=== PATIENT | female | born 1960 | race Caucasian/White ===

== ENCOUNTER → 2016-07-27 | Outpatient (CLI) | payer OTHER | END | disposition home or self-care (01) | LOC: LABWHC1 10:25 | PROVIDERS: ATTEND Internal Medicine Endocrinology, Diabetes & Metabolism | DX: E89.0 Postprocedural hypothyroidism (principal) | CPT/HCPCS: 36415; 84443 ==

== ENCOUNTER → 2017-04-24 | Outpatient (CLI) | payer OTHER | END | disposition home or self-care (01) | LOC: LABWHC1 12:20 | PROVIDERS: ATTEND Internal Medicine Endocrinology, Diabetes & Metabolism | DX: E03.8 Other specified hypothyroidism (principal) | CPT/HCPCS: 36415; 84443 ==

== ENCOUNTER 2017-11-19 07:59 | Emergency (ER) | payer OTHER ==
[2017-11-19] MEDS ORDERED: MECLIZINE 12.5 MG TAB PO STA (08:04)
[2017-11-19] MEDS ORDERED: SODIUM CHLORIDE 0.9% 1,000 ML IV STA (08:04)
[2017-11-19] MEDS ORDERED: METOCLOPRAMIDE 5 MG/ML 2 ML VIAL IVP STA (08:08)
[2017-11-19 08:15] LABS: Glucose,Whole Blood 140 mg/dL (75-99)
[2017-11-19 08:27] LABS: Basophils % (A) 0 %; Eosinophils # (A) 0.6 k/uL (0-0.7); Eosinophils % (A) 7 %; HCT 38.4 % (34.0-46.0); HGB 12.7 gm/dL (11.4-16.0); Lymphocytes % (A) 38 %; MCH 30.4 pg (25.0-35.0); MCHC 33.2 g/dL (31.0-37.0); MCV 91.5 fL (80.0-100.0); Mean Platelet Volume 8.1; Monocytes # (A) 0.4 k/uL (0-1.0); Monocytes % (A) 5 %; Neutrophils # (A) 3.7 k/uL (1.3-7.7); Neutrophils % (A) 47 %; Platelet Count 414 k/uL (150-450); WBC 7.8 k/uL (3.8-10.6)
--- NOTE | 2017-11-19 08:40 | ED ---
Dizziness HPI - General Chief Complaint: Dizziness Stated Complaint: dizziness, vomiting Time Seen by Provider: 11/19/17 08:03 Source: patient, EMS, RN notes reviewed Mode of arrival: EMS Limitations: no limitations - History of Present Illness Initial Comments: This a 57-year-old female presents emergency department via EMS chief complaint of dizziness. 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 Patient states that she went to the bathroom started feeling lightheaded chemo the bathroom was much more dizzy. She states the room was spinning. Patient states that she is much better she lays still close her eyes. She does have current sinus congestion and has been told by ENT in the past that she has slight Mnire's disease. Patient denies any recent fever , headache, sore throat, cough or chest congestion. Patient denies any chest pain, shortness of breath, vomiting but states she is nauseated time. She does take medications for hyperlipidemia, diabetes, hypertension - Related Data Home Medications Medication Instructions Recorded Confirmed Aspirin EC [Ecotrin] 81 mg PO DAILY 10/29/14 10/29/14 Benazepril HCl [Lotensin] 40 mg PO DAILY 10/29/14 10/29/14 Citalopram Hydrobromide [CeleXA] 20 mg PO DAILY 10/29/14 10/29/14 Loratadine [Claritin] 10 mg PO DAILY 10/29/14 10/29/14 Pravastatin Sodium [Pravachol] 20 mg PO DAILY 10/29/14 10/29/14 metFORMIN HCL [Glucophage] 1,000 mg PO BID 10/29/14 10/29/14 Levothyroxine Sodium [Synthroid] 112 mcg PO [id number] 11/19/17 11/19/17 Previous Rx's Medication Instructions Recorded Meclizine [Antivert] 25 mg PO TID PRN #15 tab 11/19/17 Allergies Allergy/AdvReac Type Severity Reaction Status Date / Time No Known Allergies Allergy Verified 11/19/17 10:42 Review of Systems ROS Statement: Those systems with pertinent positive or pertinent negative responses have been documented in the HPI. ROS Other: All systems not noted in ROS Statement are negative. Past Medical History Past Medical History: Cancer, Diabetes Mellitus, Hyperlipidemia, Hypertension, Thyroid Disorder History of Any Multi-Drug Resistant Organisms: None Reported Past Surgical History: Hysterectomy Additional Past Surgical History / Comment(s): total thyroidectomy Past Psychological History: No Psychological Hx Reported Smoking Status: Never smoker Past Alcohol Use History: None Reported Past Drug Use History: None Reported General Exam Limitations: no limitations General appearance: alert, in no apparent distress Head exam: Present: atraumatic, normocephalic, normal inspection Eye exam: Present: normal appearance, PERRL, EOMI. Absent: scleral icterus, conjunctival injection, periorbital swelling ENT exam: Present: normal exam, normal oropharynx, mucous membranes moist, TM's normal bilaterally, normal external ear exam Neck exam: Present: normal inspection, full ROM. Absent: tenderness, meningismus, lymphadenopathy Respiratory exam: Present: normal lung sounds bilaterally. Absent: respiratory distress, wheezes, rales, rhonchi, stridor Cardiovascular Exam: Present: regular rate, normal rhythm, normal heart sounds. Absent: systolic murmur, diastolic murmur, rubs, gallop, clicks GI/Abdominal exam: Present: soft, normal bowel sounds. Absent: distended, tenderness, guarding, rebound, rigid Neurological exam: Present: alert, oriented X3, CN II-XII intact, reflexes normal, other (Finger to nose intact bilaterally without or shooting). Absent: motor sensory deficit Skin exam: Present: warm, dry, intact, normal color. Absent: rash Course Vital Signs 11/19/17 08:04 Temperature 97.9 F Pulse Rate 71 Respiratory 20 Rate Blood Pressure 178/86 O2 Sat by Pulse 100 Oximetry EKG Findings - EKG Comments: EKG Findings:: EKG performed at 8:27 normal sinus rhythm with a rate of 65 MS 138 QRS 98 QT/QTc 442/459 Medical Decision Making - Medical Decision Making 57-year-old female presented emergency department for dizziness. Patient had lab work, EKG which is unremarkable. Patient symptoms were worse with movement. Symptoms have improved after Antivert and IV fluids. She states she has no dizziness at this time. Patient's symptoms are consistent with vertigo will follow-up tomorrow for recheck she'll be advised that she needs to follow for clearance to go back to work. - Lab Data Result diagrams: 11/19/17 08:15 11/19/17 08:15 Lab Results 04/30/18 04/30/18 04/30/18 Range/Units 08:13 08:15 08:15 WBC 7.8 (3.8-10.6) k/uL RBC 4.20 (3.80-5.40) m/uL Hgb 12.7 (11.4-16.0) gm/dL Hct 38.4 (34.0-46.0) % MCV 91.5 (80.0-100.0) fL MCH 30.4 (25.0-35.0) pg MCHC 33.2 (31.0-37.0) g/dL RDW 13.0 (11.5-15.5) % Plt Count 414 (150-450) k/uL Neutrophils % 47 % Lymphocytes % 38 % Monocytes % 5 % Eosinophils % 7 % Basophils % 0 % Neutrophils # 3.7 (1.3-7.7) k/uL Lymphocytes # 3.0 (1.0-4.8) k/uL Monocytes # 0.4 (0-1.0) k/uL Eosinophils # 0.6 (0-0.7) k/uL Basophils # 0.0 (0-0.2) k/uL Carbon Monoxide, Quant (<10.0) % Sodium 142 (137-145) mmol/L Potassium 4.0 (3.5-5.1) mmol/L Chloride 106 (98-107) mmol/L Carbon Dioxide 21 L (22-30) mmol/L Anion Gap 15 mmol/L BUN 11 (7-17) mg/dL Creatinine 0.57 (0.52-1.04) mg/dL Est GFR (CKD-EPI)AfAm >90 (>60 ml/min/1.73 sqM) Est GFR (CKD-EPI)NonAf >90 (>60 ml/min/1.73 sqM) Glucose 143 H (74-99) mg/dL POC Glucose (mg/dL) 140 H (75-99) mg/dL POC Glu Health Technician ID Kvng [place] Calcium 9.6 (8.4-10.2) mg/dL Magnesium 1.7 (1.6-2.3) mg/dL Total Bilirubin 0.5 (0.2-1.3) mg/dL AST 22 (14-36) U/L ALT 42 (9-52) U/L Alkaline Phosphatase 77 (38-126) U/L Troponin I (0.000-0.034) ng/mL Total Protein 6.6 (6.3-8.2) g/dL Albumin 4.1 (3.5-5.0) g/dL Urine Color Urine Appearance (Clear) Urine pH (5.0-8.0) Ur Specific [place] (1.001-1.035) Urine Protein (Negative) Urine Glucose (UA) (Negative) Urine Ketones (Negative) Urine Blood (Negative) Urine Nitrite (Negative) Urine Bilirubin (Negative) Urine Urobilinogen (<2.0) mg/dL Ur Leukocyte Esterase (Negative) Urine RBC (0-5) /hpf Urine WBC (0-5) /hpf Ur Squamous Epith Cells (0-4) /hpf Amorphous Sediment (None) /hpf Urine Bacteria (None) /hpf Urine Mucus (None) /hpf 11/19/17 11/19/17 11/19/17 Range/Units 08:15 08:15 09:45 WBC (3.8-10.6) k/uL RBC (3.80-5.40) m/uL Hgb (11.4-16.0) gm/dL Hct (34.0-46.0) % MCV (80.0-100.0) fL MCH (25.0-35.0) pg MCHC (31.0-37.0) g/dL RDW (11.5-15.5) % Plt Count (150-450) k/uL Neutrophils % % Lymphocytes % % Monocytes % % Eosinophils % % Basophils % % Neutrophils # (1.3-7.7) k/uL Lymphocytes # (1.0-4.8) k/uL Monocytes # (0-1.0) k/uL Eosinophils # (0-0.7) k/uL Basophils # (0-0.2) k/uL Carbon Monoxide, Quant 1.3 (<10.0) % Sodium (137-145) mmol/L Potassium (3.5-5.1) mmol/L Chloride (98-107) mmol/L Carbon Dioxide (22-30) mmol/L Anion Gap mmol/L BUN (7-17) mg/dL Creatinine (0.52-1.04) mg/dL Est GFR (CKD-EPI)AfAm (>60 ml/min/1.73 sqM) Est GFR (CKD-EPI)NonAf (>60 ml/min/1.73 sqM) Glucose (74-99) mg/dL POC Glucose (mg/dL) (75-99) mg/dL POC Glu Health Technician ID Calcium (8.4-10.2) mg/dL Magnesium (1.6-2.3) mg/dL Total Bilirubin (0.2-1.3) mg/dL AST (14-36) U/L ALT (9-52) U/L Alkaline Phosphatase (38-126) U/L Troponin I <0.012 (0.000-0.034) ng/mL Total Protein (6.3-8.2) g/dL Albumin (3.5-5.0) g/dL Urine Color Light Yellow Urine Appearance Cloudy H (Clear) Urine pH 6.5 (5.0-8.0) Ur Specific [place] 1.009 (1.001-1.035) Urine Protein 1+ H (Negative) Urine Glucose (UA) Negative (Negative) Urine Ketones Negative (Negative) Urine Blood Negative (Negative) Urine Nitrite Negative (Negative) Urine Bilirubin Negative (Negative) Urine Urobilinogen <2.0 (<2.0) mg/dL Ur Leukocyte Esterase Negative (Negative) Urine RBC 5 (0-5) /hpf Urine WBC 4 (0-5) /hpf Ur Squamous Epith Cells <1 (0-4) /hpf Amorphous Sediment Few H (None) /hpf Urine Bacteria Moderate H (None) /hpf Urine Mucus Rare H (None) /hpf Disposition Clinical Impression: Vertigo Disposition: HOME SELF-CARE Condition: Stable Instructions: Dizziness (ED) Additional Instructions: Please return to the Emergency Department if symptoms worsen or any other concerns. Prescriptions: Meclizine [Antivert] 25 mg PO TID PRN #15 tab PRN Reason: Vertigo Is patient prescribed a controlled substance at d/c from ED?: No Referrals: Nawaf Kwok DO [Primary Care Provider] - 1-2 days Time of Disposition: 10:44
[2017-11-19 08:41] LABS: ALT 42 U/L (9-52); AST 22 U/L (14-36); Albumin 4.1 g/dL (3.5-5.0); Alkaline Phosphatase 77 U/L (38-126); Anion Gap 15 mmol/L; Blood Urea Nitrogen 11 mg/dL (7-17); Calcium 9.6 mg/dL (8.4-10.2); Carbon Dioxide 21 mmol/L (22-30); Chloride 106 mmol/L (98-107); Glucose 143 mg/dL (74-99); Magnesium 1.7 mg/dL (1.6-2.3); Sodium 142 mmol/L (137-145); Total Bilirubin 0.5 mg/dL (0.2-1.3); Total Protein 6.6 g/dL (6.3-8.2)
[2017-11-19 10:00] LABS: Amorphous Sediment,Urine Few /hpf; Appearance,Urine Cloudy (Clear); Bacteria,Urine Moderate /hpf; Bilirubin,Urine Negative (Negative); Blood,Urine Negative (Negative); Color,Urine Light Yellow; Glucose,Urine (UA) Negative (Negative); Ketones,Urine Negative (Negative); Leukocyte Esterase,Urine Negative (Negative); Mucus,Urine Rare /hpf; Nitrite,Urine Negative (Negative); PH, Urine 6.5 (5.0-8.0); Protein,Urine 1+ (Negative); RBC,Urine 5 /hpf (0-5); Specific Gravity,Urine 1.009 (1.001-1.035); Squamous Epithelial Cell,Urine <1 /hpf (0-4); Urobilinogen,Urine <2.0 mg/dL (<2.0); WBC,Urine 4 /hpf (0-5)
[2017-11-19 11:10] VITALS: BP 176/75; PULSE 85; RESP 18; TEMP 97.6
== END 2017-11-19 11:11 | disposition home or self-care (01) ==
LOC: EC 07:59
DX: R42 Dizziness and giddiness (principal); E11.9 Type 2 diabetes mellitus without complications; E78.5 Hyperlipidemia, unspecified; I10 Essential (primary) hypertension; E07.9 Disorder of thyroid, unspecified; Z79.84 Long term (current) use of oral hypoglycemic drugs; Z79.82 Long term (current) use of aspirin; Z79.899 Other long term (current) drug therapy; Z85.9 Personal history of malignant neoplasm, unspecified
CPT/HCPCS: 99284; 96374; 96361 ×3; 36415; 93005; 80053; 82375; 83735; 84484; 85025; 81001; J2765

== ENCOUNTER → 2017-12-24 | Outpatient (CLI) | payer OTHER | END | disposition home or self-care (01) | LOC: LABWHC1 09:06 | PROVIDERS: ATTEND Internal Medicine Endocrinology, Diabetes & Metabolism | DX: E03.8 Other specified hypothyroidism (principal) | CPT/HCPCS: 36415; 84443 ==

== ENCOUNTER 2018-08-16 08:36 | Day surgery (SDC) | payer OTHER ==
[2018-08-14 13:49] VITALS: BMI 32.5
[~2018-08-16 08:36] MED LIST: DEXAMETHASONE SOD PHOSPHATE 10 MG/ML 1 ML VIAL IV ONE; DEXAMETHASONE SOD PHOSPHATE 4 MG/ML 1 ML VIAL IV ONE; FAMOTIDINE 20 MG/2 ML VIAL IV ONE; HYDROmorphone 0.5 MG/0.5 ML SYRINGE IVP PRN; LACTATED RINGERS 1,000 ML IV SCH; MIDAZOLAM (PF) 2 MG/2 ML VIAL IV PRN; ONDANSETRON 4 MG/2 ML VIAL IVP ONE; SCOPOLAMINE 1.5MG/72HR PATCH TRANSDERM ONE; ceFAZolin 1,000 MG in DEXTROSE/WATER 1 50ML.BAG IV ONE
[2018-08-16] MEDS: OXYMETAZOLINE 0.05% NASL SPRAY 1 SPRAY BOTTLE NASAL ONE ×5 (08:57→09:19)
[2018-08-16 09:27] LABS: Glucose,Whole Blood 101 mg/dL (75-99)
[2018-08-16] MEDS: LACTATED RINGERS 1,000 ML IV SCH ×2 (09:31→09:52)
[2018-08-16] MEDS ORDERED: ePHEDrine SULFATE/0.9% NACL/PF 50 MG/5 ML SYRINGE IV ONE (09:49)
[2018-08-16] MEDS ORDERED: LIDOCAINE 1% INJ 10MG/ML (20 ML MDV) ONE (09:49)
[2018-08-16] MEDS ORDERED: PROPOFOL 10 MG/ML 20 ML VIAL IV ONE (09:49)
[2018-08-16] MEDS ORDERED: MIDAZOLAM 2 MG/2 ML VIAL ONE (09:49)
[2018-08-16] MEDS ORDERED: SUCCINYLCHOLINE CHLORIDE 100 MG/5 ML SYR IV ONE (09:49)
[2018-08-16] MEDS ORDERED: fentaNYL (PF) 50 MCG/ML 2 ML AMP ONE (09:49)
[2018-08-16] MEDS ORDERED: DEXAMETHASONE SOD PHOS (MDV) 100 MG/10 ML VIAL ONE (09:49)
[2018-08-16] MEDS ORDERED: LIDOCAINE 1%-EPI 1:100,000 20 ML VIAL SQ ONE ×3 (09:50)
[2018-08-16] MEDS ORDERED: FLUORESCEIN STRIPS 1 MG STRIP MISCELLANE ONE (09:50)
[2018-08-16] MEDS ORDERED: BUPIVACAIN-EPI 0.5%-1:200,000 30 ML VIAL SQ ONE ×3 (09:50)
[2018-08-16] MEDS ORDERED: EPINEPHrine 1 MG/ML (MDV) 30 ML VIAL TOPICAL ONE (09:51)
[2018-08-16 11:04] VITALS: RESP 16; TEMP 97
--- NOTE | 2018-08-16 11:16 | P.OP ---
Date of Procedure: 08/16/18 Preoperative Diagnosis: Chronic Sinusitis with maxillary sinus polyps Deviated nasal septum Postoperative Diagnosis: Same Procedure(s) Performed: Bilateral functional endoscopic sinus surgery with maxillary antrostomy and polyp removal, total ethmoidectomies, sphenoid sinusotomies with removal of diseased tissue Septoplasty Anesthesia: WOODYA Surgeon: Deepak Rogers Estimated Blood Loss (ml): 5 Pathology: other (Sinonasal) Condition: stable Disposition: PACU Indications for Procedure: This patient was found to have chronic sinusitis and a deviated nasal septum. CAT scan imaging shows chronic infection of the maxillary ethmoid and sphenoid sinuses with large polyps of the maxillary sinuses especially the left side. The patient has failed medical therapy. Functional endoscopic sinus surgery and correction of her right septal deviation is recommended. All risks, benefits, and alternative therapies were discussed. Consent was obtained and all questions were answered. Operative Findings: Same Description of Procedure: Preoperatively the patient had her consent reviewed. All risks, benefits, and alternative therapies were discussed and all questions were answered. The patient was informed of the procedure and a confirmatory fashion and was in agreement to proceed forward. In the operating room a timeout was performed and all issues were reviewed with the operating room staff. The patient underwent a general inhalation anesthetic and intubated by the department of anesthesia and also monitored throughout the entire case by the department of anesthesia. A functioning IV line was in place. The patient was positioned in the supine position with slight reverse Trendelenburg. Preoperatively she had Afrin nasal spray. We then injected the septum, lateral nasal wall, turbinates with lidocaine 1% with epinephrine 1 100, 000. Approximately 10 minutes were allowed wait for full vasoconstrictive effects to take place. A caudal incision was made over the caudal portion of the left septum down to the mucoperichondrium. A mucoperichondrial flap was developed with use of tunnels inferiorly and superiorly. We identified the deviation and with use of crosshatching incisions and removal of some redundant strips of septal cartilage , the septum was placed back in the midline in excellent position relieving this patient of this deviated nasal septum. We closed the incision with a 40 rapid Vicryl and a quilting stitch was used to reapproximate the septal flap. The septum was corrected and a swing door type fashion. The septum was sutured fixated to the vomer area and groove with use of a 40 rapid Vicryl. Attention was then paid to the middle turbinates which were brought medial. The uncinate process was visualized and reflected forward with a David probe. With the use of an endoscope utilizing 0 30 and 90 we perform this procedure and utilize this endoscope on a video camera throughout the entire procedure. This was with use of a Lucero bryanna scope. We then took down the uncinate process with a pediatric backbiter and a microdebrider. After the uncinate process was removed the maxillary sinuses were opened widely with use of a straight boss. We open the maxillary sinuses widely and into the maxillary sinuses with endoscopic visualization. Diseased tissue was removed from the maxillary sinuses bilaterally and the sinuses were opened bilaterally. The left maxillary sinus had very large polyps and cysts. The right sided maxillary sinus had some diseased tissue that was removed. After the maxillary sinuses were opened and diseased tissue was removed attention was then paid to the ethmoid bulla. From a medial to lateral position we took down the ethmoid bulla. We identified the roof of the maxillary sinus and the inferior attachment of the superior turbinate and then took down the basal lamella and into the posterior ethmoid air cells. We did a total ethmoidectomy with use of an up-biting boss. Excellent results were obtained. Diseased tissue was found in the ethmoid sinuses and removed. We then entered the sphenoid sinus underneath the inferior attachment of the superior turbinate. The sphenoid sinus was opened with the microdebrider and diseased tissue was removed from each sphenoid sinus. This was also done with use of endoscopic visualization. . Xerogel was placed after the drug-eluting stents were inserted After the sinuses were opened and the sinuses explored and all sinuses had diseased tissue removed,. contour and propel was placed. Excellent hemostasis was obtained throughout the entire case and very low blood was noted. The skull base and orbital reddy looked good. We reinspected the sinonasal region and no bleeding was encountered. Bilateral nasal splints were placed The patient was then taken to postanesthesia recovery in excellent condition. A follow-up is scheduled for next week. The patient is to contact me if there is any problems or issues.
[2018-08-16 11:35] LABS: Glucose,Whole Blood 141 mg/dL (75-99)
[2018-08-16 12:31] VITALS: BP 123/56; PULSE 87
== END 2018-08-16 12:44 | disposition home or self-care (01) ==
LOC: OR 08:36
PROVIDERS: ATTEND Otolaryngology
DX: J32.9 Chronic sinusitis, unspecified (principal); J33.8 Other polyp of sinus; J34.2 Deviated nasal septum; E11.9 Type 2 diabetes mellitus without complications; I10 Essential (primary) hypertension; H81.09 Meniere's disease, unspecified ear; H90.5 Unspecified sensorineural hearing loss; E66.9 Obesity, unspecified; Z68.32 Body mass index [BMI] 32.0-32.9, adult; F41.9 Anxiety disorder, unspecified; E78.00 Pure hypercholesterolemia, unspecified; E78.5 Hyperlipidemia, unspecified; E07.9 Disorder of thyroid, unspecified; J30.89 Other allergic rhinitis; J30.1 Allergic rhinitis due to pollen; Z85.850 Personal history of malignant neoplasm of thyroid; Z79.2 Long term (current) use of antibiotics; Z79.84 Long term (current) use of oral hypoglycemic drugs; Z79.1 Long term (current) use of non-steroidal anti-inflammatories (NSAID); Z79.82 Long term (current) use of aspirin; Z79.890 Hormone replacement therapy; Z79.52 Long term (current) use of systemic steroids; Z79.899 Other long term (current) drug therapy; Z77.22 Contact with and (suspected) exposure to environmental tobacco smoke (acute) (chronic)
CPT/HCPCS: 88305; 88300; 30520; 31267; 31259; C2625 ×2; J0171; J2250; J1100 ×2; J2405; J2001; J3010; J0690; J0330; J2704

== ENCOUNTER → 2018-09-10 | Outpatient (CLI) | payer OTHER | LOC: LABWHC1 09:49 | PROVIDERS: ATTEND Internal Medicine Endocrinology, Diabetes & Metabolism | DX: E03.8 Other specified hypothyroidism (principal) | CPT/HCPCS: 36415; 84443 ==

== ENCOUNTER → 2019-04-22 | Outpatient (CLI) | payer OTHER | END | disposition home or self-care (01) | LOC: LABWHC1 12:21 | PROVIDERS: ATTEND Internal Medicine Endocrinology, Diabetes & Metabolism | DX: E03.8 Other specified hypothyroidism (principal) | CPT/HCPCS: 36415; 84443 ==

== ENCOUNTER → 2019-04-25 | Outpatient (CLI) | payer OTHER | END | disposition home or self-care (01) | LOC: LABWHC1 09:25 | PROVIDERS: ATTEND Otolaryngology | DX: J30.89 Other allergic rhinitis (principal) | CPT/HCPCS: 36415 ==

== ENCOUNTER → 2020-01-06 | Outpatient (CLI) | payer OTHER | END | disposition home or self-care (01) | LOC: LABWHC1 13:18 | PROVIDERS: ATTEND Internal Medicine Endocrinology, Diabetes & Metabolism | DX: E03.8 Other specified hypothyroidism (principal) | CPT/HCPCS: 36415; 84443 ==

== ENCOUNTER → 2020-03-23 | Outpatient (CLI) | payer OTHER | END | disposition home or self-care (01) | LOC: LABWHC1 09:57 | PROVIDERS: ATTEND Internal Medicine Endocrinology, Diabetes & Metabolism | DX: E03.8 Other specified hypothyroidism (principal) | CPT/HCPCS: 36415; 84443 ==

== ENCOUNTER → 2020-09-22 | Outpatient (CLI) | payer OTHER | END | disposition home or self-care (01) | LOC: LABWHC1 09:12 | PROVIDERS: ATTEND Internal Medicine Endocrinology, Diabetes & Metabolism | DX: E03.8 Other specified hypothyroidism (principal) | CPT/HCPCS: 36415; 84443 ==

== ENCOUNTER → 2021-01-06 | Outpatient (CLI) | payer OTHER | END | disposition home or self-care (01) | LOC: LABWHC1 12:51 | PROVIDERS: ATTEND Internal Medicine Endocrinology, Diabetes & Metabolism | DX: E03.8 Other specified hypothyroidism (principal) | CPT/HCPCS: 36415; 84439; 84443 ==

== ENCOUNTER → 2021-10-18 | Outpatient (CLI) | payer MEDICARE ==
[2021-10-18 14:24] LABS: Basophils # (A) 0.05 X 10*3/uL (0.00-0.10); Basophils % (A) 0.8 %; Eosinophils # (A) 0.16 X 10*3/uL (0.04-0.35); Eosinophils % (A) 2.6 %; HCT 40.3 % (37.2-46.3); HGB 13.2 g/dL (12.0-15.0); Immature Grans, Automated 0.3 %; Lymphocytes # (A) 1.77 X 10*3/uL (0.90-5.00); Lymphocytes % (A) 28.8 %; MCH 32.5 pg (27.0-32.0); MCHC 32.8 g/dL (32.0-37.0); MCV 99.3 fL (80.0-97.0); Mean Platelet Volume 9.8 fL (9.5-12.2); Monocytes # (A) 0.52 X 10*3/uL (0.20-1.00); Monocytes % (A) 8.5 %; NRBC Per 100 WBC 0 /100 WBCS (0.0-0.0); Neutrophils # (A) 3.63 X 10*3/uL (1.80-7.70); Platelet Count 415 X 10*3/uL (140-440); RBC 4.06 X 10*6/uL (4.10-5.20); RDW 12.3 % (11.5-14.5); WBC 6.15 X 10*3/uL (4.50-10.00)
[2021-10-18 14:27] LABS: Anion Gap 12.4 mmol/L (10.00-18.00); Carbon Dioxide 20.6 mmol/L (20.0-27.5); Potassium 4.8 mmol/L (3.5-5.5)
== END | disposition home or self-care (01) ==
LOC: LABWHC1 08:13
PROVIDERS: ATTEND Otolaryngology
DX: Z51.81 Encounter for therapeutic drug level monitoring (principal)
CPT/HCPCS: 36415; 80051; 85025

== ENCOUNTER → 2021-10-18 | Outpatient (CLI) | payer MEDICARE ==
--- NOTE | 2021-10-18 16:02 | BD ---
EXAMINATION TYPE: Axial Bone Density DATE OF EXAM: 10/18/2021 COMPARISON: NONE CLINICAL HISTORY: 61 years year old Female. ICD-10 CODE: Z78.0 POST MENOPAUSAL WITHOUT HRT Height: 60.2 IN Weight: 180 LBS FRAX RISK QUESTIONS: Secondary Osteoporosis: 3. Menopause before 45: TOTAL HYST AGE 47 RISK FACTORS HISTORY OF: Family History of Osteoporosis: YES MOTHER Active: YES Postmenopausal woman: TOTAL HYST AGE 47 MEDICATIONS: Thyroid Medications: YES Which medication: Levothyroxine How Lon+ YEARS Additional Medications: LEVOTHYROXINE,BENAZEPRIL, ATORVASTATIN, SPIRONALACT, CITALOPRAM, KLONAPIN, CL ARITIN, Additional History: PT HAD THYROID CANCER AND RADIATION PILL EXAM MEASUREMENTS: Bone mineral densitometry was performed using the [employer] System. Bone mineral density as measured about the Lumbar spine is: ----- L1-L4(G/cm2): 1.113 T Score Values are as follows: ----- L1: -0.1 ----- L2: -0.1 ----- L3: -1.1 ----- L4: -1.1 ----- L1-L4: -0.6 Bone mineral density BASELINE Bone mineral density about the R hip (g/cm2): 0.729 Bone mineral density about the L hip (g/cm2): 0.707 T Score values are as follows: -----R Neck: -2.2 -----L Neck: -2.4 -----R Total: -1.5 -----L Total: -1.6 Bone mineral density BASELINE FRAX%s: The graph provided illustrates a 10.7 chance for a major osteoporotic fx and a 1.8 chance for the hips probability for fx in 10 years time. IMPRESSION: Osteopenia (T Score between -2.5 and -1). There is slightly increased risk of fracture and the patient may be considered for treatment. Re-Screen 2-5 years. NOTE: T-SCORE=SD OF THE YOUNG ADULT MEAN.
--- NOTE | 2021-10-20 09:08 | MM ---
Reason for exam: screening (asymptomatic). Last mammogram was performed 7 years and 3 months ago. History: Patient is postmenopausal and is nulliparous. Family history of premenopausal breast cancer in sister at age 47. Physical Findings: A clinical breast exam by your physician is recommended on an annual basis and results should be correlated with mammographic findings. MG 3D Screening Mammo W/Cad Bilateral CC and MLO view(s) were taken. Prior study comparison: July 20, 2014, bilateral MG screening mammo w CAD. There are scattered fibroglandular densities. No significant changes when compared with prior studies. ASSESSMENT: Benign, BI-RAD 2 RECOMMENDATION: Routine screening mammogram of both breasts in 1 year.
== END | disposition home or self-care (01) ==
LOC: RADMAMWWP 07:00
PROVIDERS: ATTEND Family Medicine
DX: Z12.31 Encounter for screening mammogram for malignant neoplasm of breast (principal); M85.89 Other specified disorders of bone density and structure, multiple sites; Z78.0 Asymptomatic menopausal state; Z80.3 Family history of malignant neoplasm of breast
CPT/HCPCS: 77063; 77067; 77080

== ENCOUNTER → 2021-12-05 | Outpatient (CLI) | payer MEDICARE | END | disposition home or self-care (01) | LOC: LABWHC1 07:31 | PROVIDERS: ATTEND Internal Medicine Endocrinology, Diabetes & Metabolism | DX: E03.8 Other specified hypothyroidism (principal) | CPT/HCPCS: 36415; 84443 ==

== ENCOUNTER → 2022-04-12 | Outpatient (CLI) | payer MEDICARE ==
[2022-04-12 10:34] LABS: Anion Gap 11.2 mmol/L (10.00-18.00); Carbon Dioxide 22.8 mmol/L (20.0-27.5)
== END | disposition home or self-care (01) ==
LOC: LABWHC1 06:56
PROVIDERS: ATTEND Otolaryngology
DX: R53.83 Other fatigue (principal); Z79.899 Other long term (current) drug therapy
CPT/HCPCS: 36415; 80051

== ENCOUNTER → 2022-06-06 | Outpatient (CLI) | payer MEDICARE ==
[2022-06-07 10:56] LABS: Lyme IgG/IgM 0.09 Index
== END | disposition home or self-care (01) ==
LOC: LABWHC1 09:32
PROVIDERS: ATTEND Otolaryngology
DX: R53.83 Other fatigue (principal)
CPT/HCPCS: 36415; 86618

== ENCOUNTER → 2022-07-18 | Outpatient (CLI) | payer MEDICARE ==
[2022-07-18 14:43] LABS: Anion Gap 8.8 mmol/L (10.00-18.00); Potassium 4.8 mmol/L (3.5-5.5)
== END | disposition home or self-care (01) ==
LOC: LABWHC1 07:31
PROVIDERS: ATTEND Otolaryngology
DX: Z79.899 Other long term (current) drug therapy (principal)
CPT/HCPCS: 36415; 80051

== ENCOUNTER → 2022-08-14 | Outpatient (CLI) | payer MEDICARE | END | disposition home or self-care (01) | LOC: LABWHC1 08:42 | PROVIDERS: ATTEND Internal Medicine Endocrinology, Diabetes & Metabolism | DX: E03.8 Other specified hypothyroidism (principal) | CPT/HCPCS: 36415; 84443 ==

== ENCOUNTER → 2022-11-17 | Outpatient (CLI) | payer MEDICARE ==
--- NOTE | 2022-11-20 07:12 | MM ---
Reason for Exam: Screening (asymptomatic). Last mammogram was performed 1 year(s) and 1 month(s) ago. Patient History: Menarche at age 14. Patient has no children. Left ovary removed at age 44. Right ovary removed at age 44. Hysterectomy at age 44. Sister had breast cancer, age 47. Risk Values: Awilda 5 year model risk: 2.7%. NCI Lifetime model risk: 12.1%. Prior Study Comparison: 05/14/2009 Bilateral Screening Mammogram, [facility]. 07/20/2014 Bilateral Screening Mammogram, [facility]. 10/18/2021 Bilateral Screening Mammogram, [facility]. Tissue Density: There are scattered fibroglandular densities. Findings: Analyzed By CAD. There are a few tiny benign-appearing round calcifications scattered throughout the bilateral breasts. There is no suspicious group of microcalcifications or new suspicious mass in either breast. Overall Assessment: Benign, BI-RAD 2 Management: Screening Mammogram of both breasts in 1 year. . Patient should continue monthly self-breast exams. A clinical breast exam by your physician is recommended on an annual basis. This exam should not preclude additional follow-up of suspicious palpable abnormalities. Note on Awilda scores and lifetime risk: 1. A Awilda score greater than 3% is considered moderate risk. If this is the case, consider specialist referral to assess eligibility for a risk reducing agent. 2. If overall lifetime risk for the development of breast cancer is 20% or higher, the patient may qualify for future screening with alternating mammogram and breast MRI. Electronically signed and approved by: David Betancur M.D.
== END | disposition home or self-care (01) ==
LOC: RADMAMWWP 10:09
PROVIDERS: ATTEND Family Medicine
DX: Z12.31 Encounter for screening mammogram for malignant neoplasm of breast (principal); Z80.3 Family history of malignant neoplasm of breast
CPT/HCPCS: 77063; 77067

== ENCOUNTER → 2023-10-30 | Outpatient (CLI) | payer MEDICARE ==
--- NOTE | 2023-10-30 13:08 | FL ---
EXAMINATION TYPE: FL barium swallow DATE OF EXAM: 10/30/2023 CLINICAL HISTORY: Dysphasia TECHNIQUE: A single contrast esophagram is performed utilizing air and barium. A total of 40 second s of fluoroscopic time was utilized during procedure and 19 images obtained. Total dose area product (DAP) in uGy*m?, mGy*cm? (or similar) Not provided. COMPARISON: None FINDINGS: The esophagus shows tertiary contractions of the esophagus and normal emptying into the sto mach. There is previous left hand surgery. There is normal orientation of the lap band. There is a sm all pouch noted above the level of the lap band. But no evidence of stricture noted. Mild gastroesoph ageal reflux was seen during real time performance of this study. IMPRESSION: 1. 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 2. Previous lap band surgery. Small pouch is seen above the lap band. No obstruction. Consider EGD co rrelation.
--- NOTE | 2023-10-30 19:02 | US ---
EXAMINATION TYPE: US gallbladder DATE OF EXAM: 10/30/2023 COMPARISON: NONE CLINICAL INDICATION: Female, 63 years old with history of R10.11 RIGHT UPPER QUADRANT PAIN; RUQ pain x 4 months. TECHNIQUE: Multiple sonographic images of the right upper quadrant are obtained. FINDINGS: EXAM MEASUREMENTS: Liver Length: 13.6 cm Gallbladder Wall: 0.23 cm CBD: Obscured Right Kidney: 10.7 x 5.1 x 4.5 cm PRODUCTION RECORDER NOTES: Exam is limited due to gas. Pancreas: Limited, tail was not visualized. Liver: Limited visibility, all images of right lobe taken intercostal. Gallbladder: Appears anechoic Evidence for sonographic Gasca's sign: No CBD: Obscured Right Kidney: No hydro or masses seen. Limited. IMPRESSION: No evidence for acute process. Limited evaluation of liver. No suspicious masses.
== END | disposition home or self-care (01) ==
LOC: RADUSWWP 07:39
PROVIDERS: ATTEND Surgery Plastic and Reconstructive Surgery
DX: K44.9 Diaphragmatic hernia without obstruction or gangrene (principal); Z98.84 Bariatric surgery status
CPT/HCPCS: 74220; 76705

== ENCOUNTER 2023-11-01 06:39 | Day surgery (SDC) | payer MEDICARE ==
[2023-11-01] MEDS ORDERED: LIDOCAINE 1% (10MG/ML) FOR IV START INTRADERMA PRN (07:03)
[2023-11-01 07:22] VITALS: RESP 16; TEMP 97.1
[2023-11-01] MEDS: LACTATED RINGERS 1,000 ML IV SCH (07:22)
[2023-11-01 07:24] LABS: Glucose,Whole Blood 115 mg/dL (70-110)
--- NOTE | 2023-11-01 07:41 | P.GSHP ---
History of Present Illness H&P Date: 11/01/23 CHIEF COMPLAINT: GERD and colon screen HISTORY OF PRESENT ILLNESS: The patient is a 63-year-old female who presents with gastroesophageal reflux disease and need for colon screen. Upper and lower endoscopy were offered for further evaluation and management. PAST MEDICAL HISTORY: Please see list. PAST SURGICAL HISTORY: Please see list. MEDICATIONS: Please see list. ALLERGIES: Please see list. SOCIAL HISTORY: No illicit drug use FAMILY HISTORY: No reports of Crohn disease or ulcerative colitis. REVIEW OF ORGAN SYSTEMS: CONSTITUTIONAL: No reports of fevers or chills. GI: Denies any blood in stools or constipation. PHYSICAL EXAM: VITAL SIGNS: Stable GENERAL: Well-developed pleasant in no acute distress. HEENT: No scleral icterus. Extraocular movements grossly intact. Moist buccal mucosa. NECK: Supple without lymphadenopathy. CHEST: Unlabored respirations. Equal bilateral excursions. CARDIOVASCULAR: Regular rate and rhythm. Distal 2+ pulses. ABDOMEN: Soft, nondistended. MUSCULOSKELETAL: No clubbing, cyanosis, or edema. ASSESSMENT: 1. Gastroesophageal reflux disease 2. Colon screen. PLAN: 1. Recommend proceeding with an upper and lower endoscopy Past Medical History Past Medical History: Cancer, Diabetes Mellitus, Hyperlipidemia, Hypertension, Thyroid Disorder Additional Past Medical History / Comment(s): thyroid cancer History of Any Multi-Drug Resistant Organisms: None Reported Past Surgical History: Bariatric Surgery, Hysterectomy, Orthopedic Surgery Additional Past Surgical History / Comment(s): total thyroidectomy, lapband, arthroscopy lt knee Past Anesthesia/Blood Transfusion Reactions: Postoperative Nausea & Vomiting (PONV) Smoking Status: Never smoker - Past Family History Father Family Medical History: Cancer Additional Family Medical History / Comment(s): colon cancer Sister(s) Family Medical History: Cancer, CVA/TIA Additional Family Medical History / Comment(s): breast cancer, Brother(s) Family Medical History: No Reported History Additional Family Medical History / Comment(s): skin cancer Mother Family Medical History: Cancer Additional Family Medical History / Comment(s): skin cancer Medications and Allergies Home Medications Medication Instructions Recorded Confirmed Type Aspirin EC [Ecotrin] 81 mg PO DAILY 10/29/14 11/01/23 History Benazepril HCl [Lotensin] 40 mg PO DAILY 10/29/14 11/01/23 History Loratadine [Claritin] 10 mg PO DAILY 10/29/14 11/01/23 History metFORMIN HCL [Glucophage] 500 mg PO BID 10/29/14 11/01/23 History Levothyroxine Sodium [Synthroid] 112 mcg PO DAILY 11/19/17 11/01/23 History Meclizine [Antivert] 25 mg PO TID PRN #15 tab 11/19/17 11/01/23 Rx Atorvastatin Calcium [Lipitor] 20 mg PO DAILY 08/14/18 11/01/23 History Citalopram Hydrobromide 20 mg PO DAILY 08/14/18 11/01/23 History [Citalopram HBr] clonazePAM [KlonoPIN] 1 mg PO DAILY PRN 08/14/18 11/01/23 History Ondansetron [Zofran] 4 mg PO Q12HR PRN 11/01/23 11/01/23 History Allergies Allergy/AdvReac Type Severity Reaction Status Date / Time No Known Allergies Allergy Verified 08/16/18 08:56 Surgical - Exam Vital Signs Temp Pulse Resp BP Pulse Ox 97.1 F L 65 16 133/85 95 11/01/23 07:15 11/01/23 07:15 11/01/23 07:15 11/01/23 07:15 11/01/23 07:15 Results - Labs Abnormal Lab Results - Last 24 Hours (Table) 11/01/23 Range/Units 07:20 POC Glucose (mg/dL) 115 H (70-110) mg/dL
[2023-11-01] MEDS ORDERED: LIDOCAINE 1% INJ 10MG/ML (20 ML MDV) ONE (07:42)
[2023-11-01] MEDS ORDERED: PROPOFOL 10 MG/ML 20 ML VIAL IV ONE (07:42)
--- NOTE | 2023-11-01 07:55 | P.PCN ---
Date of Procedure: 11/01/23 Description of Procedure: PREOPERATIVE DIAGNOSIS: Gastroesophageal reflux disease. POSTOPERATIVE DIAGNOSIS: Gastroesophageal reflux disease With erosive esophagitis History of adjustable gastric band Gastritis, chronic Diaphragmatic hiatal hernia OPERATION: Esophagogastroduodenoscopy with biopsies along esophagus, antrum and duodenum SURGEON: Deya Franks MD ANESTHESIA: MAC. INDICATIONS: The patient is a 63-year-old female who presents with reflux disease. Benefits and risks of the procedure were described. Informed consent was obtained. DESCRIPTION: The patient was brought into the endoscopy suite and laid in the left lateral decubitus position. An Olympus gastroscope was passed along the posterior oropharynx down to the distal esophagus where the squamocolumnar junction was encountered at 35 cm from the incisors. The stomach was entered and no bile reflux was found. Additional findings are listed below. Biopsies with cold forceps were obtained of the antrum. The first through third portion of the duodenum was examined. Retroflexion of the scope confirmed Hill grade 2 lower esophageal valve. The squamocolumnar junction demonstrated LA grade C erosive esophagitis. The stomach was desufflated. The patient tolerated the procedure well. FINDINGS: Squamocolumnar junction 35 cm from the incisors. Diaphragmatic hiatus at 40 cm. Hiatal hernia, 5 cm Presence of adjustable gastric band without erosion Hill grade 2 lower esophageal valve. LA grade C erosive esophagitis. Biopsies obtained. Biopsies obtained of the duodenum. Chronic gastritis with biopsies obtained. RECOMMENDATIONS: Recommend repair of diaphragmatic hiatal hernia Upper endoscopy as needed.
--- NOTE | 2023-11-01 08:10 | P.PCN ---
Date of Procedure: 11/01/23 Description of Procedure: PREOPERATIVE DIAGNOSIS: Family history colon cancer Colonoscopy screening. POSTOPERATIVE DIAGNOSIS: Colonoscopy screening. Diverticulosis, scattered. Poor prep OPERATION: Colonoscopy to the cecum, ileocecal valve and appendiceal orifice. SURGEON: Deya Franks MD. ANESTHESIA: MAC. INDICATIONS: The patient is a 63-year-old female who presents for colonoscopy screening. Family history of colon cancer. Last colonoscopy over 10 years ago. Benefits and risks were described and informed consent was obtained. DESCRIPTION OF PROCEDURE: The patient had undergone Sutab prep. The patient had been brought into the operating room and laid in the left lateral decubitus position. After adequate intravenous sedation, the rectum was examined with 2% lidocaine jelly. No external hemorrhoids were encountered. The rectal tone was within normal limits. No lesions were palpated in the rectal vault. An Olympus colonoscope was advanced until the cecum, ileocecal valve and appendiceal orifice were clearly viewed. The prep was poor with complete coverage of liquid stool involving the ascending colon and cecum. Scattered diverticulosis was encountered. No colonic polyps over 1 cm were found. No obvious evidence of focal colitis was found. Retroflexion of the scope demonstrated grade 1 internal hemorrhoids without active bleeding or inflammation. The colon was desufflated. The patient had tolerated the procedure well. Withdrawal time was over 6 minutes. FINDINGS: Aronchick preparation quality scale 4 (1-5) Internal hemorrhoids, grade 1 No external prolapsed hemorrhoids. No arteriovenous malformations. No adenomatous polyps. Complete opacification of ascending colon from liquid stools, nondiagnostic No focal colitis. Sigmoid diverticulosis. RECOMMENDATIONS: Lower endoscopy in 2 years, 2025, due to high risk and poor prep Recommend prolonged bowel prep, 3 days Plan - Discharge Summary Discharge Rx Participant: No New Discharge Prescriptions: Continue RX: Aspirin EC [Ecotrin Low Dose] 81 mg PO DAILY RX: metFORMIN HCL [Glucophage] 500 mg PO BID RX: Loratadine [Claritin] 10 mg PO DAILY RX: Benazepril HCl [Lotensin] 40 mg PO DAILY RX: Levothyroxine Sodium [Synthroid] 112 mcg PO DAILY RX: Meclizine [Antivert] 25 mg PO TID PRN #15 tab PRN Reason: Vertigo RX: clonazePAM [KlonoPIN] 1 mg PO DAILY PRN PRN Reason: Anxiety RX: Atorvastatin Calcium [Lipitor] 20 mg PO DAILY RX: Citalopram Hydrobromide [Citalopram HBr] 20 mg PO DAILY RX: Ondansetron [Zofran] 4 mg PO Q12HR PRN PRN Reason: Nausea Discharge Medication List RX: Aspirin EC [Ecotrin Low Dose] 81 mg PO DAILY 10/29/14 [History] RX: Benazepril HCl [Lotensin] 40 mg PO DAILY 10/29/14 [History] RX: Loratadine [Claritin] 10 mg PO DAILY 10/29/14 [History] RX: metFORMIN HCL [Glucophage] 500 mg PO BID 10/29/14 [History] RX: Levothyroxine Sodium [Synthroid] 112 mcg PO DAILY 11/19/17 [History] RX: Meclizine [Antivert] 25 mg PO TID PRN #15 tab 11/19/17 [Rx] RX: Atorvastatin Calcium [Lipitor] 20 mg PO DAILY 08/14/18 [History] RX: Citalopram Hydrobromide [Citalopram HBr] 20 mg PO DAILY 08/14/18 [History] RX: clonazePAM [KlonoPIN] 1 mg PO DAILY PRN 08/14/18 [History] RX: Ondansetron [Zofran] 4 mg PO Q12HR PRN 11/01/23 [History] Follow up Appointment(s)/Referral(s): Deya Franks MD [STAFF PHYSICIAN] - 11/27/23 11:30 am Patient Instructions/Handouts: *Surgery [facility] - (Anesthesia) Discharge Instructions Outpatient Surgery, Diverticulosis Diet (GEN), Diverticulosis (ED), Hiatal Hernia (DC) Activity/Diet/Wound Care/Special Instructions: Repeat colonoscopy 2 years, 2023 Discharge Disposition: HOME SELF-CARE
[2023-11-01 08:46] VITALS: BP 149/78; PULSE 59
== END 2023-11-01 09:13 | disposition home or self-care (01) ==
LOC: ORWHC2ENDO 06:39
PROVIDERS: ATTEND Surgery Plastic and Reconstructive Surgery
DX: Z12.11 Encounter for screening for malignant neoplasm of colon (principal); K29.50 Unspecified chronic gastritis without bleeding; K44.9 Diaphragmatic hernia without obstruction or gangrene; K21.00 Gastro-esophageal reflux disease with esophagitis, without bleeding; K57.30 Diverticulosis of large intestine without perforation or abscess without bleeding; K64.0 First degree hemorrhoids; E11.9 Type 2 diabetes mellitus without complications; E78.5 Hyperlipidemia, unspecified; I10 Essential (primary) hypertension; E07.9 Disorder of thyroid, unspecified; Z79.82 Long term (current) use of aspirin; Z79.84 Long term (current) use of oral hypoglycemic drugs; Z79.890 Hormone replacement therapy; Z79.899 Other long term (current) drug therapy; Z80.0 Family history of malignant neoplasm of digestive organs; Z85.850 Personal history of malignant neoplasm of thyroid; Z90.710 Acquired absence of both cervix and uterus
CPT/HCPCS: 88305; 43239; J2001; J2704; G0105

== ENCOUNTER → 2023-11-20 | Outpatient (CLI) | payer MEDICARE ==
--- NOTE | 2023-11-20 14:35 | MM ---
Reason for Exam: Screening (asymptomatic). Last screening mammogram was performed 12 month(s) ago. Patient History: Menarche at age 14. Patient has no children. Left ovary removed at age 44. Right ovary removed at age 44. Hysterectomy at age 44. Other cancer. Sister had breast cancer, age 47. Risk Values: Awilda 5 year model risk: 2.8%. NCI Lifetime model risk: 11.7%. Prior Study Comparison: 07/20/2014 Bilateral Screening Mammogram, [facility]. 10/18/2021 Bilateral Screening Mammogram, [facility]. 11/17/2022 Bilateral MG 3D screening mammo w/cad, [facility]. Tissue Density: There are scattered areas of fibroglandular density. Findings: Analyzed By CAD. The pattern is symmetrical. No significant interval change is evident. Benign spherical calcifications within the left breast. No suspicious groups of microcalcifications, spiculated or lobular masses, architectural distortion or other secondary signs of malignancy are mammographically apparent. Overall Assessment: Benign, BI-RAD 2 Management: Screening Mammogram of both breasts in 1 year. A negative mammogram report should not preclude additional follow up of suspicious palpable abnormalities. Patient should continue monthly self breast exam. A clinical breast exam by your physician is recommended on an annual basis and results should be correlated with mammographic findings. Note on Awilda scores and lifetime risk: 1. A Awilda score greater than 3% is considered moderate risk. If this is the case, consider specialist referral to assess eligibility for a risk reducing agent. 2. If overall lifetime risk for the development of breast cancer is 20% or higher, the patient may qualify for future screening with alternating mammogram and breast MRI. Electronically signed and approved by: Rodrigo Anderson D.O. Radiologis
== END | disposition home or self-care (01) ==
LOC: RADMAMWWP 06:49
PROVIDERS: ATTEND Family Medicine
DX: Z12.31 Encounter for screening mammogram for malignant neoplasm of breast (principal); Z80.3 Family history of malignant neoplasm of breast
CPT/HCPCS: 77063; 77067

== ENCOUNTER → 2023-11-21 | Outpatient (CLI) | payer MEDICARE ==
--- NOTE | 2023-11-21 14:32 | P.BASOAP ---
Subjective Progress Note Date: 11/21/23 DATE OF SERVICE: 11/21/23 REASON FOR CONSULTATION: Initial bariatric evaluation. HISTORY OF PRESENT ILLNESS: Aysha Barrera is a 63-year-old female who comes with lifelong morbid obesity. Has adjustable gastric band. Due to her morbid obesity she has developed diabetes, hypertensive heart disease observed, hyperlipidemia. She also has hypothyroidism due to total thyroidectomy from thyroid cancer. She comes in with problems with her adjustable gastric band particularly with dysphagia and troubles with swallowing. Symptoms has been ongoing for more than 6 months. She presents for management of adjustable gastric band. At height of 5 feet 2 inches, her ideal body weight is 135 pounds. Prior weight of 194 pounds, body mass index 35.5. She comes in 175 pounds. Lifetime weight loss of 19 pounds. Lifetime percent excess weight loss 32%. Her body mass index is 32.0. She is 40 pounds overweight. PAST MEDICAL HISTORY: 1. Morbid obesity due to excess calories 2. Body mass index of 35.5, initial 3. Diabetes type 2, not insulin-dependent 4. Hypertensive heart disease 5. Hyperlipidemia 6. Hypothyroidism 7. Thyroid cancer 8. Postop nausea vomiting PAST SURGICAL HISTORY: 1. Total thyroidectomy 2. Hysterectomy 3. Adjustable gastric band placement 4. Left knee arthroscopy 5. Cholecystectomy HOME MEDICATIONS: Home Medications Medication Instructions Recorded Confirmed Benazepril HCl [Lotensin] 40 mg PO DAILY 10/29/14 11/23/23 Loratadine [Claritin] 10 mg PO DAILY 10/29/14 11/23/23 metFORMIN HCL [Glucophage] 500 mg PO BID 10/29/14 11/23/23 Levothyroxine Sodium [Synthroid] 112 mcg PO DAILY 11/19/17 11/23/23 Atorvastatin Calcium [Lipitor] 20 mg PO DAILY 08/14/18 11/23/23 Citalopram Hydrobromide 20 mg PO DAILY 08/14/18 11/23/23 [Citalopram HBr] clonazePAM [KlonoPIN] 1 mg PO DAILY PRN 08/14/18 11/23/23 Ondansetron [Zofran] 4 mg PO Q12HR PRN 11/01/23 11/23/23 Pantoprazole [Protonix] 40 mg PO DAILY 11/23/23 11/23/23 Spironolactone 25 mg PO DAILY 11/23/23 11/23/23 Previous Rx's Medication Instructions Recorded Meclizine [Antivert] 25 mg PO TID PRN #15 tab 11/19/17 ALLERGIES: Allergies Allergy/AdvReac Type Severity Reaction Status Date / Time No Known Allergies Allergy Verified 08/16/18 08:56 SOCIAL HISTORY: No past tobacco use. FAMILY HISTORY: No family history of ulcerative colitis disease or Crohn's disease. Family history of morbid obesity. No lupus in the family. No reports of stomach or esophageal cancer. No history of colon cancer. REVIEW OF ORGAN SYSTEMS: CONSTITUTIONAL: At height of 5 feet 2 inches, her ideal body weight is 135 alejandro nds. Prior weight of 194 pounds, body mass index 35.5. She comes in 175 pounds. Lifetime weight loss of 19 pounds. Lifetime percent excess weight loss 32%. Her body mass index is 32.0. She is 40 pounds overweight. HEENT: Denies any active troubles with vision or hearing. Has troubles with swallowing. ENDOCRINE: Has diabetes. Has hypothyroidism. CARDIOVASCULAR: Has hypertensive heart disease. Has hyperlipidemia. RESPIRATORY: Denies daytime somnolence. Has asthma. Denies chronic obstructive pulmonary disease. GASTROINTESTINAL: Denies any bright red blood per rectum. No diarrhea. No constipation. Has gastroesophageal reflux disease. GENITOURINARY: Denies bladder urgency. No recent blood in urine MUSCULOSKELETAL: Has lower back pain and joint pain. Has osteoarthritis of the knees. NEURO: No headaches. No seizure disorders. PSYCH: Has depression. No suicidal ideation. RHEUMATOLOGIC: No lupus. No rheumatoid arthritis. HEMATOLOGIC: Denies any abnormal bleeding or bruising. SKIN: No rash. No skin cancer. PHYSICAL EXAM: VITAL SIGNS: Height 5 foot 2 inches, weight 175 pounds. BMI 32.0 Vital Signs Temp 98 F 11/21/23 14:38 Pulse 76 11/21/23 14:38 Resp BP 118/75 11/21/23 14:38 Pulse Ox FiO2 GENERAL: Well-developed in no acute distress. HEENT: No scleral icterus. Extraocular movements grossly intact. Hears conversational speech. No nasal drainage. NECK: Supple without lymphadenopathy. CHEST: Nonlabored respirations with equal bilateral excursions. CARDIOVASCULAR: Regular rate and regular rhythm. Distal 2+ pulses. ABDOMEN: Obese, soft, nontender, nondistended. Adjustable gastric band present without erythema. MUSCULOSKELETAL: No clubbing, cyanosis. Gross strength 5/5 distal lower extremities. NEURO: No focal or lateralizing signs. Cranial nerves 2 through 12 grossly within normal limits. PSYCH: Appropriate affect. Alert and oriented to person, place and time. SKIN: Good skin turgor. Well perfused. STUDIES: Barium swallow esophagram from October 2023 independently reviewed demonstrates tertiary contractions consistent with presbyesophagus. Presence of diaphragmatic hiatal hernia. This is my independent interpretation. Adjustable gastric band in appropriate position. Ultrasound of the gallbladder independently reviewed from October 2023 demonstrates no large gallstones. No gallbladder wall thickening. This is my independent interpretation. REPORT: Esophagram report demonstrates esophageal dysmotility. Ultrasound of the gallbladder report and liver demonstrates no acute abnormality. Common bile duct obscured. EGD FINDINGS from October 2023: Squamocolumnar junction 35 cm from the incisors. Diaphragmatic hiatus at 40 cm. Hiatal hernia, 5 cm Presence of adjustable gastric band without erosion Hill grade 2 lower esophageal valve. LA grade C erosive esophagitis. Biopsies obtained. Biopsies obtained of the duodenum. Chronic gastritis with biopsies obtained. Lipoma of ampulla of Vater, 1 cm Final Pathologic Diagnosis A. DUODENUM, BIOPSY: Benign small bowel mucosa with intact villous architecture, negative for histopathologic abnormality. B. GASTRIC ANTRUM, BIOPSY: Minimal chronic gastritis. Helicobacter pylori organisms are not identified on routine H+E sections. C. ESOPHAGUS, BIOPSY: Chronic esophagitis with scattered intramucosal eosinophils consistent with reflux esophagitis. ASSESSMENT: 1. Morbid obesity due to excess calories 2. Body mass index of 35.5, initial 3. Diabetes type 2, not insulin-dependent 4. Hypertensive heart disease 5. Hyperlipidemia 6. Hypothyroidism 7. Thyroid cancer 8. Postop nausea vomiting 9. Dysphagia 10. Diaphragmatic hiatal hernia 11. Erosive esophagitis with gastroesophageal reflux disease PLAN: 1. She has complications from adjustable gastric band and seeking removal. 2. Recommend a bariatric metabolic panel to evaluate for micro- including macronutrient deficiencies. 3. Will need cardiac risk assessment. 4. EKG including full bariatric metabolic panel to correct nutritional deficiencies. Thank you for this consultation. Assessment/Plan Plan: Date: Initial Weight: Initial BMI: Current Weight: Current BMI: Type of Surgery: Total Volume in Band: Previous Volume: Volume Removed: Volume Added: Band Size:
[2023-11-21 15:12] VITALS: BP 118/75; PULSE 76; TEMP 98; BMI 34.2
== END ==
LOC: BARWHC3 14:12
PROVIDERS: ATTEND Surgery Plastic and Reconstructive Surgery
DX: E66.01 Morbid (severe) obesity due to excess calories (principal); E11.9 Type 2 diabetes mellitus without complications; E78.5 Hyperlipidemia, unspecified; E03.9 Hypothyroidism, unspecified; I11.9 Hypertensive heart disease without heart failure; K91.0 Vomiting following gastrointestinal surgery; K21.00 Gastro-esophageal reflux disease with esophagitis, without bleeding; K44.9 Diaphragmatic hernia without obstruction or gangrene; K29.50 Unspecified chronic gastritis without bleeding; R13.10 Dysphagia, unspecified; Z68.35 Body mass index [BMI] 35.0-35.9, adult; Z79.899 Other long term (current) drug therapy; Z79.890 Hormone replacement therapy; Z79.84 Long term (current) use of oral hypoglycemic drugs
CPT/HCPCS: 99211

== ENCOUNTER → 2023-11-22 | Outpatient (CLI) | payer MEDICARE ==
[2023-11-22 10:43] LABS: Basophils # (A) 0.05 X 10*3/uL (0.00-0.10); Basophils % (A) 0.8 %; Eosinophils # (A) 0.31 X 10*3/uL (0.04-0.35); HCT 36.5 % (37.2-46.3); HGB 12.3 g/dL (12.0-15.0); Lymphocytes # (A) 1.89 X 10*3/uL (0.90-5.00); Lymphocytes % (A) 30.2 %; MCH 32.6 pg (27.0-32.0); MCHC 33.7 g/dL (32.0-37.0); MCV 96.8 FL (80.0-97.0); Mean Platelet Volume 10.3 FL (9.5-12.2); Monocytes # (A) 0.51 X 10*3/uL (0.20-1.00); Monocytes % (A) 8.1 %; NRBC Per 100 WBC 0 X 10*3/uL (0.00-0.01); Neutrophils # (A) 3.48 X 10*3/uL (1.80-7.70); Neutrophils % (A) 55.6 %; Platelet Count 392 X 10*3/uL (140-440); RBC 3.77 X 10*6/uL (4.10-5.20); WBC 6.26 X 10*3/uL (4.50-10.00)
[2023-11-22 11:11] LABS: ALT 39 U/L (8-44); AST 27 U/L (13-35); Albumin 4.5 g/dL (3.8-4.9); Albumin/Globulin Ratio 1.88 Ratio (1.60-3.17); Alkaline Phosphatase 76 U/L (41-126); BUN/Creat Ratio 18.25 Ratio (12.00-20.00); Blood Urea Nitrogen 14.6 mg/dL (9.0-27.0); Calcium 11.1 mg/dL (8.7-10.3); Carbon Dioxide 24.1 mmol/L (21.6-31.8); Chloride 102 mmol/L (96-109); Globulin 2.4 g/dL (1.6-3.3); Glucose 147 mg/dL (70-110); Sodium 136 mmol/L (135-145); Total Bilirubin 0.4 mg/dL (0.3-1.2); Total Protein 6.9 g/dL (6.2-8.2)
== END | disposition home or self-care (01) ==
LOC: LABWHC1 06:51
PROVIDERS: ATTEND Surgery Plastic and Reconstructive Surgery
DX: Z01.818 Encounter for other preprocedural examination (principal); R94.31 Abnormal electrocardiogram [ECG] [EKG]; R00.1 Bradycardia, unspecified
CPT/HCPCS: 36415; 80053; 85025; 93005

== ENCOUNTER → 2024-05-28 | Outpatient (CLI) | payer MEDICARE ==
[2024-05-28 15:06] VITALS: BP 149/75; PULSE 54; RESP 16; TEMP 97.5; BMI 31.4
--- NOTE | 2024-05-28 15:24 | P.BASOAP ---
Subjective Progress Note Date: 05/28/24 Cardiac clearance. She wants band out. SHe needs full labs. SHe is on eliquis. Dr Parker. Dec 2, Get labs. Band removal. Objective - Vital Signs Vital signs: Vital Signs Temp 97.5 F L 05/28/24 15:03 Pulse 54 L 05/28/24 15:03 Resp 16 05/28/24 15:03 BP 149/75 05/28/24 15:03 Pulse Ox FiO2 Intake & Output 05/27/24 05/28/24 05/28/24 18:59 06:59 18:59 Weight 78.018 kg Assessment/Plan Plan: Date: 05/28/24 Initial Weight: 79.379 kg Initial BMI: 32.0 Current Weight: 78.018 kg Current BMI: 31.4 Type of Surgery: Adjustable Gastric Banding Total Volume in Band: Previous Volume: Volume Removed: Volume Added: Band Size:
== END ==
LOC: BARWHC3 14:56
PROVIDERS: ATTEND Surgery Plastic and Reconstructive Surgery
DX: E66.01 Morbid (severe) obesity due to excess calories (principal); Z68.31 Body mass index [BMI] 31.0-31.9, adult
CPT/HCPCS: 99211

== ENCOUNTER → 2024-06-02 | Outpatient (CLI) | payer MEDICARE ==
[2024-06-02 11:06] LABS: Partial Thromboplastin Time 31.1 sec (22.0-30.0); Prothrombin Time 10.6 sec (10.0-12.5)
[2024-06-02 15:43] LABS: HGB 11.7 g/dL (12.0-15.0); MCH 32.6 pg (27.0-32.0); MCHC 32.5 g/dL (32.0-37.0); MCV 100.3 FL (80.0-97.0); Mean Platelet Volume 10.7 FL (9.5-12.2); NRBC Per 100 WBC 0 X 10*3/uL (0.00-0.01); Platelet Count 394 X 10*3/uL (140-440); RBC 3.59 X 10*6/uL (4.10-5.20); RDW 13.5 % (11.5-14.5)
[2024-06-02 17:53] LABS: % Iron Saturation 15.65 (12.00-45.00); ALT 20 U/L (8-44); AST 16 U/L (13-35); Albumin 4.4 g/dL (3.8-4.9); Albumin/Globulin Ratio 1.76 Ratio (1.60-3.17); Alkaline Phosphatase 68 U/L (41-126); BUN/Creat Ratio 13.38 Ratio (12.00-20.00); Blood Urea Nitrogen 10.7 mg/dL (9.0-27.0); Calcium 10.4 mg/dL (8.7-10.3); Carbon Dioxide 24.7 mmol/L (21.6-31.8); Chloride 103 mmol/L (96-109); Chol/HDL Ratio 2.19 Ratio; Globulin 2.5 g/dL (1.6-3.3); Glucose 164 mg/dL (70-110); Iron 59 UG/DL (50-170); LDL Cholesterol,Calculated 54.2 mg/dL (0.0-131.0); Magnesium 1.7 mg/dL (1.5-2.4); Phosphorus 3.2 mg/dL (2.4-5.1); Potassium 4.5 mmol/L (3.5-5.5); Sodium 138 mmol/L (135-145); Total Bilirubin 0.3 mg/dL (0.3-1.2); Total Iron Binding Capacity 377 UG/DL (228-460); Total Protein 6.9 g/dL (6.2-8.2)
[2024-06-03 10:30] LABS: Zinc, Serum 88 ug/dL (60-130)
[2024-06-04 06:25] LABS: Vitamin A 48 ug/dL (38-106)
== END | disposition home or self-care (01) ==
LOC: LABWHC1 09:37
PROVIDERS: ATTEND Surgery Plastic and Reconstructive Surgery
DX: E66.01 Morbid (severe) obesity due to excess calories (principal); D50.8 Other iron deficiency anemias; K91.2 Postsurgical malabsorption, not elsewhere classified; E44.0 Moderate protein-calorie malnutrition; E44.1 Mild protein-calorie malnutrition; E45 Retarded development following protein-calorie malnutrition; E55.9 Vitamin D deficiency, unspecified; K74.1 Hepatic sclerosis; N19 Unspecified kidney failure; T56.894A Toxic effect of other metals, undetermined, initial encounter; K50.90 Crohn's disease, unspecified, without complications; R94.31 Abnormal electrocardiogram [ECG] [EKG]; R00.1 Bradycardia, unspecified
CPT/HCPCS: 36415; 80053; 80061; 82306; 82525; 82607; 82728; 82746; 83036; 83540; 83550; 83735; 83970; 84100; 84134; 84255; 84425; 84443; 84590; 84630; 85027; 85610; 85730; 93005

== ENCOUNTER 2024-06-23 08:35 | Day surgery (SDC) | payer MEDICARE ==
[2024-06-16 15:58] VITALS: BMI 32.0
--- NOTE | 2024-06-23 08:13 | P.GSHP ---
History of Present Illness H&P Date: 06/23/24 CHIEF COMPLAINT: Complications of adjustable gastric band HISTORY OF PRESENT ILLNESS: Aysha Barrera is a 6-year-old female who comes with lifelong morbid obesity. Due to her morbid obesity she has developed diabetes, hypertensive heart disease observed, hyperlipidemia. She comes in with problems with her adjustable gastric band particularly with dysphagia and troubles with swallowing. Symptoms has been ongoing for more than 10 months. She presents for removal of adjustable gastric band. At height of 5 feet 2 inches, her ideal body weight is 135 pounds. Prior weight of 194 pounds, body mass index 35.5. She comes in 175 pounds. Lifetime weight loss of 19 pounds. Lifetime percent excess weight loss 32%. Her body mass index is 32.0. She is 40 pounds overweight. PAST MEDICAL HISTORY: 1. Morbid obesity due to excess calories 2. Body mass index of 35.5, initial 3. Diabetes type 2, not insulin-dependent 4. Hypertensive heart disease 5. Hyperlipidemia 6. Hypothyroidism 7. Thyroid cancer 8. Postop nausea vomiting PAST SURGICAL HISTORY: 1. Total thyroidectomy 2. Hysterectomy 3. Adjustable gastric band placement 4. Left knee arthroscopy 5. Cholecystectomy HOME MEDICATIONS: Reviewed ALLERGIES: Reviewed SOCIAL HISTORY: No past tobacco use. FAMILY HISTORY: No family history of ulcerative colitis disease or Crohn's disease. Family history of morbid obesity. No lupus in the family. No reports of stomach or esophageal cancer. No history of colon cancer. REVIEW OF ORGAN SYSTEMS: CONSTITUTIONAL: At height of 5 feet 2 inches, her ideal body weight is 135 pounds. Prior weight of 194 pounds, body mass index 35.5. She comes in 175 pounds. Lifetime weight loss of 19 pounds. Lifetime percent excess weight loss 32%. Her body mass index is 32.0. She is 40 pounds overweight. HEENT: Denies any active troubles with vision or hearing. Has troubles with swallowing. ENDOCRINE: Has diabetes. Has hypothyroidism. CARDIOVASCULAR: Has hypertensive heart disease. Has hyperlipidemia. RESPIRATORY: Denies daytime somnolence. Has asthma. Denies chronic obstructive pulmonary disease. GASTROINTESTINAL: Denies any bright red blood per rectum. No diarrhea. No constipation. Has gastroesophageal reflux disease. GENITOURINARY: Denies bladder urgency. No recent blood in urine MUSCULOSKELETAL: Has lower back pain and joint pain. Has osteoarthritis of the knees. NEURO: No headaches. No seizure disorders. PSYCH: Has depression. No suicidal ideation. RHEUMATOLOGIC: No lupus. No rheumatoid arthritis. HEMATOLOGIC: Denies any abnormal bleeding or bruising. SKIN: No rash. No skin cancer. PHYSICAL EXAM: VITAL SIGNS: Height 5 foot 2 inches, weight 175 pounds. BMI 32.0 GENERAL: Well-developed in no acute distress. HEENT: No scleral icterus. Extraocular movements grossly intact. Hears conversational speech. No nasal drainage. NECK: Supple without lymphadenopathy. CHEST: Nonlabored respirations with equal bilateral excursions. CARDIOVASCULAR: Regular rate and regular rhythm. Distal 2+ pulses. ABDOMEN: Obese, soft, nontender, nondistended. Adjustable gastric band present without erythema. MUSCULOSKELETAL: No clubbing, cyanosis. NEURO: No focal or lateralizing signs. Cranial nerves 2 through 12 grossly within normal limits. PSYCH: Appropriate affect. Alert and oriented to person, place and time. SKIN: Good skin turgor. Well perfused. ASSESSMENT: 1. Complications of adjustable gastric band 2. Body mass index of 35.5, initial 3. Diabetes type 2, not insulin-dependent 4. Hypertensive heart disease 5. Hyperlipidemia 6. Hypothyroidism 7. Thyroid cancer 8. Postop nausea vomiting 9. Dysphagia 10. Diaphragmatic hiatal hernia 11. Erosive esophagitis with gastroesophageal reflux disease 12. Morbid obesity due to excess calories PLAN: 1. Due to complications from adjustable gastric band, robotic assisted removal of adjustable gastric band and all components were described. 2. Cardiac risk assessment obtained 3. DVT prophylaxis 4. Antibiotic prophylaxis 5. She is elevated risk for complications due to comorbidities. Past Medical History Past Medical History: Atrial Fibrillation, Cancer, Diabetes Mellitus, GERD/Reflux, Hearing Disorder / Deafness, Hyperlipidemia, Hypertension, Thyroid Disorder Additional Past Medical History / Comment(s): thyroid cancer. Type II NIDDM. Occassional Afib. Bilat hearing aides. "Kidney damage." History of Any Multi-Drug Resistant Organisms: None Reported Past Surgical History: Bariatric Surgery, Hysterectomy, Orthopedic Surgery Additional Past Surgical History / Comment(s): total thyroidectomy, lapband, arthroscopy lt knee, Sinus surgery x 2, Colonoscopy, EGD. Past Anesthesia/Blood Transfusion Reactions: No Reported Reaction, Postoperative Nausea & Vomiting (PONV) Additional Past Anesthesia/Blood Transfusion Reaction / Comment(s): No hx of blood transfusion to date. Hx of Meniere's disease. Smoking Status: Never smoker - Past Family History Father Family Medical History: Cancer Additional Family Medical History / Comment(s): colon cancer Sister(s) Family Medical History: Cancer, CVA/TIA Additional Family Medical History / Comment(s): breast cancer, Brother(s) Family Medical History: Cancer Additional Family Medical History / Comment(s): skin cancer Mother Family Medical History: Cancer Additional Family Medical History / Comment(s): skin cancer Medications and Allergies Home Medications Medication Instructions Recorded Confirmed Type Loratadine [Claritin] 10 mg PO DAILY 10/29/14 06/16/24 History metFORMIN HCL [Glucophage] 500 mg PO BID 10/29/14 06/16/24 History Meclizine [Antivert] 25 mg PO TID PRN #15 tab 11/19/17 06/16/24 Rx Atorvastatin Calcium [Lipitor] 20 mg PO HS 08/14/18 06/16/24 History Citalopram Hydrobromide 20 mg PO QAM 08/14/18 06/16/24 History [Citalopram HBr] clonazePAM [KlonoPIN] 1 mg PO DAILY PRN 08/14/18 06/16/24 History Ondansetron [Zofran] 4 mg PO Q12HR PRN 11/01/23 06/16/24 History Spironolactone 25 mg PO QAM 11/23/23 06/16/24 History Apixaban [Eliquis] 5 mg PO BID 05/28/24 06/16/24 History Levothyroxine Sodium [Synthroid] 88 mcg PO QAM 05/28/24 06/16/24 History Metoprolol Tartrate [Lopressor] 12.5 mg PO QAM 05/28/24 06/16/24 History Cetirizine HCl [Zyrtec] 10 mg PO QAM 06/16/24 06/16/24 History Cholecalciferol [Vitamin D3 (25 25 mcg PO QAM 06/16/24 06/16/24 History Mcg = 1000 Iu)] Tylenol(Unknown Dose) 1 tab PO QAM PRN 06/16/24 06/16/24 History Allergies Allergy/AdvReac Type Severity Reaction Status Date / Time No Known Allergies Allergy Verified 06/16/24 15:36
[~2024-06-23 08:35] MED LIST changes: -DEXAMETHASONE SOD PHOSPHATE 10 MG/ML 1 ML VIAL IV ONE; -DEXAMETHASONE SOD PHOSPHATE 4 MG/ML 1 ML VIAL IV ONE; +ENOXAPARIN 40 MG/0.4 ML SYRINGE SQ STA; -FAMOTIDINE 20 MG/2 ML VIAL IV ONE; -HYDROmorphone 0.5 MG/0.5 ML SYRINGE IVP PRN; -LACTATED RINGERS 1,000 ML IV SCH; -MIDAZOLAM (PF) 2 MG/2 ML VIAL IV PRN; -ONDANSETRON 4 MG/2 ML VIAL IVP ONE; +ONDANSETRON 4 MG/2 ML VIAL IVP PRN; +SCOPOLAMINE 1 MG/72 HR PATCH TRANSDERM STA; -SCOPOLAMINE 1.5MG/72HR PATCH TRANSDERM ONE; -ceFAZolin 1,000 MG in DEXTROSE/WATER 1 50ML.BAG IV ONE
[2024-06-23] MEDS: IV FLUID CONTINUATION 1,000 ML IV ONE (09:43)
[2024-06-23 09:45] LABS: Glucose,Whole Blood 109 mg/dL (70-110)
[2024-06-23] MEDS: ACETAMINOPHEN TAB 500 MG TAB PO PRN (09:52)
[2024-06-23] MEDS: MIDAZOLAM 2 MG/2 ML VIAL IV ONE (09:57)
[2024-06-23] MEDS: fentaNYL (PF) 50 MCG/ML 2 ML AMP IVP STA (09:57)
[2024-06-23] MEDS: DEXAMETHASONE SOD PHOSPHATE 4 MG/ML 1 ML VIAL IVP STA (10:10)
[2024-06-23] MEDS: CHLORHEXIDINE GLUCONATE 15 ML CUP MUCOUS MEM PRN (10:19)
[2024-06-23] MEDS: LACTATED RINGERS 1,000 ML BAG IV STA (10:20)
[2024-06-23] MEDS: HEPARIN SODIUM,PORCINE 5,000 UNIT/ML 1 ML VIAL SQ PRN (10:23)
--- NOTE | 2024-06-23 10:29 | P.ANPRN ---
Procedure Note - Anesthesia - Nerve Block Performed Bilateral Erector Spinae Single Time Out Performed: Yes Date of Procedure: 06/23/24 Procedure Start Time: 09:56 Procedure Stop Time: 10:04 Location of Patient: PreOp Indication: Acute Post-Operative Pain, Requested by Surgeon Sedation Type: Sedate with meaningful contact maintained Preparation: Sterile Prep Position: Prone Needle Types: Pajunk Needle Gauge: 21 Ultrasound used to visualize needle placement: Yes Ultrasound used to observe medication spread: Yes Injectate: 0.5% Ropivacaine (see comment for volume) (20 ml + 10 ml NS + 4 mg Dexamethasone per side) Blood Aspirated: No Pain Paresthesia on Injection Noted: No Resistance on Injection: Normal Image Stored and Saved: Yes Events: Uneventful and Well Tolerated
[2024-06-23] MEDS ORDERED: SUGAMMADEX SODIUM 100 MG/ML SYR IV ONE (10:47)
[2024-06-23] MEDS ORDERED: NEOSTIGMINE 1 MG/ML 10 ML VIAL ONE (10:47)
[2024-06-23] MEDS ORDERED: GLYCOPYRROLATE 0.2 MG/ML 2 ML VIAL ONE (10:47)
[2024-06-23] MEDS ORDERED: ePHEDrine 50 MG/ML 1 ML VIAL ONE (10:47)
[2024-06-23] MEDS ORDERED: LIDOCAINE 1% INJ 10MG/ML (20 ML MDV) ONE (10:47)
[2024-06-23] MEDS ORDERED: SUCCINYLCHOLINE CHLORIDE 200 MG/10 ML VIAL IV ONE (10:47)
[2024-06-23] MEDS ORDERED: ROPIVACAINE 5 MG/ML 30 ML VIAL ONE (10:47)
[2024-06-23] MEDS ORDERED: DEXAMETHASONE SOD PHOSPHATE 4 MG/ML 1 ML VIAL ONE (10:47)
[2024-06-23] MEDS ORDERED: PHENYLEPHRINE 10 MG/ML VIAL ONE (10:47)
[2024-06-23] MEDS ORDERED: SODIUM CHLORIDE 0.9% (PF) 10 ML VIAL ONE (10:47)
[2024-06-23] MEDS ORDERED: ROCURONIUM 10 MG/ML (5 ML VIAL) IV ONE (10:47)
[2024-06-23] MEDS ORDERED: MIDAZOLAM 2 MG/2 ML VIAL ONE (10:47)
[2024-06-23] MEDS ORDERED: fentaNYL (PF) 50 MCG/ML 2 ML AMP ONE (10:47)
[2024-06-23] MEDS ORDERED: PROPOFOL 10 MG/ML 20 ML VIAL IV ONE (10:47)
[2024-06-23] MEDS: LIDOCAINE 1%-EPI 1:100,000 20 ML VIAL SQ ONE (11:16)
[2024-06-23 12:24] VITALS: RESP 16; TEMP 97.1
--- NOTE | 2024-06-23 12:34 | P.OP ---
Date of Procedure: 06/23/24 Description of Procedure: SURGEON: FRIEDA YOON MD FINANCIAL INVESTIGATOR: JAIR PREOPERATIVE DIAGNOSES: 1. Complications of adjustable gastric band 2. Body mass index of 35.5, initial 3. Diabetes type 2, not insulin-dependent 4. Hypertensive heart disease 5. Hyperlipidemia 6. Hypothyroidism 7. Thyroid cancer 8. Postop nausea vomiting 9. Dysphagia 10. Diaphragmatic hiatal hernia 11. Erosive esophagitis with gastroesophageal reflux disease 12. Morbid obesity due to excess calories POSTOPERATIVE DIAGNOSES: 1. Complications of adjustable gastric band 2. Body mass index of 35.5, initial 3. Diabetes type 2, not insulin-dependent 4. Hypertensive heart disease 5. Hyperlipidemia 6. Hypothyroidism 7. Thyroid cancer 8. Postop nausea vomiting 9. Dysphagia 10. Diaphragmatic hiatal hernia 11. Erosive esophagitis with gastroesophageal reflux disease 12. Morbid obesity due to excess calories OPERATION: 1. Robotic-assisted da Francisco Xi laparoscopic removal of adjustable gastric band and all components. 2. Esophagogastroduodenoscopy ANESTHESIA: General with local anesthetic. ESTIMATED BLOOD LOSS: 5 mL SPECIMENS REMOVED: 1. Adjustable gastric band and components Condition: stable Disposition: same day COMPLICATIONS: None. Operative Findings: 1. Adjustable gastric band port found along the epigastrium removed in total 2. Densely encased adjustable gastric band removed in total 3. Erosive esophagitis INDICATIONS: The patient is a 64-year-old female who presents with complications of her adjustable gastric band. Surgical options were described including removal of the band. As she has persistent pain and discomfort from the band, removal of the adjustable gastric band and port including all components was proposed. Benefits and risks of the procedure were described. Informed consent was obtained. DESCRIPTION: The patient was brought into the operating room theater. She was placed supine. She had received heparin subcutaneously for DVT prophylaxis. Additionally she Peridex oral solution as an oral decontaminant was placed per anesthesia. After general induction, the abdomen was prepped and draped in standard sterile fashion. Ioban draping was placed along the abdomen. A robotic da Francisco Xi system was prepped and primed. Prior to incision, a timeout protocol was performed and confirmed with the surgical team. Attention was brought to the abdomen where the port was palpated along the epigastrium. After localizing the skin, transverse 3 cm incision was made over the adjustable gastric band port and circumferentially dissected free using Bovie cautery and blunt dissection. Attention was now brought to the intra-abdominal component of the procedure for the removal of the adjustable gastric band. Incisions were proposed at 12 cm from the xiphoid. Proposed port sites were marked with indelible marker along the anterior axillary line bilaterally, mid clavicular line bilaterally with each port marked 10 cm from each other. A 5 mm 0 degrees laparoscopic trocar entry was performed along the left upper quadrant. The abdomen was insufflated to 15 mmHg pressure, which she tolerated well. Diagnostic laparoscopy demonstrated no injury to bowel, viscera, or mesentery. An 8 mm camera port was placed left lateral to the umbilicus at the epigastrium, 12 cm distal to the xiphoid. Next, 8-mm port was placed along the right mid abdomen. The 5 mm port was exchanged for 12 mm trocar. The robot was docked along the left lateral abdomen. The patient was repositioned in reverse Trendelenburg position, 25-degrees. A 30-degree camera was used. Using graspers for arm 3, including scissors with cautery for arm 1, and hook cautery was used for arm 4. the robotic system was docked and primed as described. Instruments were interchanged by the social service assistant. I had sat at the console. Adjustable gastric band was embedded into dense cicatrix which was carefully dissected free using hook cautery. Additionally, the buckle of the adjustable gastric band was densely adherent to the deep tissue requiring cutting the band away from the buckle. The port was followed with its tubing to the gastric band. The gastrohepatic ligament was scarred from prior surgery. The cicatrix around the adjustable gastric band was carefully dissected free using hook cautery. The anti-prolapse stitch was intact. Using hook cautery, the cicatrix of the port was incised. The band was then freed. Allergan adjustable gastric band was removed in total. Care was taken to avoid any gastrotomies. The band buckle was cut. I then went to the head of the bed to perform intraoperative esophagogastroduodenoscopy for gastritis and erosive esophagitis. An Olympus gastroscope was passed from the posterior oropharynx down to the esophagus, where the squamocolumnar junction was found LA grade B erosive esophagitis, chronic changes. The stomach was entered. Mild chronic gastritis was found along the antrum with biopsies obtained of the antrum and duodenum. Retroflexion of the scope confirmed a Hill grade 2 lower esophageal valve. No full-thickness erosion from the prior band was encountered. The stomach was desufflated. The patient tolerated the procedure well. No evidence of leak was encountered from the removal of the band. The scope was removed with desufflation of the stomach. I re-scrubbed into the case. The port and band were removed in total without injury to the stomach via the epigastrium including the cut buckle. Hemostasis was excellent. Diagnostic laparoscopy demonstrated complete removal of all foreign body. All instruments and pneumoperitoneum were evacuated from the abdominal cavity. The port extraction site was hemostatic. The port site was irrigated using normal saline and hydrogen peroxide. The incisions were reapproximated using 4- 0 Monocryl in a subcuticular interrupted fashion. Optifoam dressing was placed over the port extraction site. At the end of the procedure, needle, sponge and instrument counts were verified correct by the poultry service technician. The patient had tolerated the procedure w ell. An abdominal binder was placed. The patient was transferred to Postanesthesia Care Unit in stable condition. Postoperative findings with intraoperative images were discussed with the patient's family who were pleased with the level of care. Plan - Discharge Summary Discharge Rx Participant: No New Discharge Prescriptions: Continue metFORMIN HCL [Glucophage] 500 mg PO BID Loratadine [Claritin] 10 mg PO DAILY Meclizine [Antivert] 25 mg PO TID PRN #15 tab PRN Reason: Vertigo clonazePAM [KlonoPIN] 1 mg PO DAILY PRN PRN Reason: Anxiety Atorvastatin Calcium [Lipitor] 20 mg PO HS Citalopram Hydrobromide [Citalopram HBr] 20 mg PO QAM Spironolactone 25 mg PO QAM Cholecalciferol [Vitamin D3 (25 Mcg = 1000 Iu)] 25 mcg PO QAM Tylenol(Unknown Dose) 1 tab PO QAM PRN PRN Reason: Pain Ondansetron [Zofran] 4 mg PO Q12HR PRN PRN Reason: Nausea Apixaban [Eliquis] 5 mg PO BID Levothyroxine Sodium [Synthroid] 88 mcg PO QAM Metoprolol Tartrate [Lopressor] 12.5 mg PO QAM Cetirizine HCl [Zyrtec] 10 mg PO QAM Discharge Medication List Loratadine [Claritin] 10 mg PO DAILY 10/29/14 [History] metFORMIN HCL [Glucophage] 500 mg PO BID 10/29/14 [History] Meclizine [Antivert] 25 mg PO TID PRN #15 tab 11/19/17 [Rx] Atorvastatin Calcium [Lipitor] 20 mg PO HS 08/14/18 [History] Citalopram Hydrobromide [Citalopram HBr] 20 mg PO QAM 08/14/18 [History] clonazePAM [KlonoPIN] 1 mg PO DAILY PRN 08/14/18 [History] Ondansetron [Zofran] 4 mg PO Q12HR PRN 11/01/23 [History] Spironolactone 25 mg PO QAM 11/23/23 [History] Apixaban [Eliquis] 5 mg PO BID 05/28/24 [History] Levothyroxine Sodium [Synthroid] 88 mcg PO QAM 05/28/24 [History] Metoprolol Tartrate [Lopressor] 12.5 mg PO QAM 05/28/24 [History] Cetirizine HCl [Zyrtec] 10 mg PO QAM 06/16/24 [History] Cholecalciferol [Vitamin D3 (25 Mcg = 1000 Iu)] 25 mcg PO QAM 06/16/24 [History] Tylenol(Unknown Dose) 1 tab PO QAM PRN 06/16/24 [History] [facility] up [facility](s[facility]Ref[facility] [place] [facility] - 06/27/24 9:00 am Patient Instructions/Handouts: Adjustable Gastric Band Removal (DC) Activity/Diet/Wound Care/Special Instructions: START BLOOD THINNER 06/26/24 May shower. Do not remove dressing. NO LONG DRIVES OR AIRPLANE RIDES OVER 60 MINUTES FOR THE NEXT 2 WEEKS, 07/07/24, DUE TO HIGH RISK OF PULMONARY EMBOLISM/DVTs Using antibacterial soap. No lifting over 10 pounds 2 weeks, 07/07/24 May shower. No bathtub soaks for 2 weeks, 07/07/24 Wear abdominal binder daily for comfort except for showering. Use ice along incisions for today to prevent swelling. Take tylenol, aleve/ibuprofen, simethicone scheduled for 3 days for best pain relief Discharge Disposition: HOME SELF-CARE
[2024-06-23] MEDS: LACTATED RINGERS 1,000 ML IV ONE (13:01)
[2024-06-23 13:45] VITALS: BP 110/60; PULSE 68
[2024-06-24] MEDS ORDERED: PANTOPRAZOLE 40 MG/10 ML VIAL IVP PRN (07:00)
== END 2024-06-23 14:22 | disposition home or self-care (01) ==
LOC: OR 08:35
PROVIDERS: ATTEND Surgery Plastic and Reconstructive Surgery
DX: K95.09 Other complications of gastric band procedure (principal); E66.01 Morbid (severe) obesity due to excess calories; I48.91 Unspecified atrial fibrillation; I11.9 Hypertensive heart disease without heart failure; K21.00 Gastro-esophageal reflux disease with esophagitis, without bleeding; K44.9 Diaphragmatic hernia without obstruction or gangrene; K76.0 Fatty (change of) liver, not elsewhere classified; E03.9 Hypothyroidism, unspecified; E11.9 Type 2 diabetes mellitus without complications; E78.5 Hyperlipidemia, unspecified; G89.18 Other acute postprocedural pain; H81.09 Meniere's disease, unspecified ear; Z68.35 Body mass index [BMI] 35.0-35.9, adult; Z79.01 Long term (current) use of anticoagulants; Z79.84 Long term (current) use of oral hypoglycemic drugs; Z79.890 Hormone replacement therapy; Z80.0 Family history of malignant neoplasm of digestive organs; Z85.850 Personal history of malignant neoplasm of thyroid; Z79.899 Other long term (current) drug therapy; Z90.49 Acquired absence of other specified parts of digestive tract; Z90.710 Acquired absence of both cervix and uterus; Y83.8 Other surgical procedures as the cause of abnormal reaction of the patient, or of later complication, without mention of misadventure at the time of the procedure
CPT/HCPCS: 43774; 64999; J2250; J0330; J1644; J1100; J2710; J0690; J2003; J3010; J2795; J2704; J2371; J1596

== ENCOUNTER → 2024-06-27 | Outpatient (CLI) | payer MEDICARE ==
[2024-06-27 08:57] VITALS: BP 139/67; PULSE 55; TEMP 97.7; BMI 33.0
--- NOTE | 2024-06-27 11:42 | P.BASOAP ---
Subjective Progress Note Date: 06/27/24 Patient present status post lap band removal. Overall do extremely well. Dressing discontinued. No infection. Abdominal binder present. Wound care instructions were hydroperoxide described. 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 Otherwise can be managed. Follow-up as outpatient as needed. Objective - Vital Signs Vital signs: Vital Signs Temp 97.7 F 06/27/24 08:54 Pulse 55 L 06/27/24 08:54 Resp BP 139/67 06/27/24 08:54 Pulse Ox FiO2 Intake & Output 06/26/24 06/27/24 06/27/24 18:59 06:59 18:59 Weight 79.379 kg Assessment/Plan Plan: Date: 06/27/24 Initial Weight: 79.379 kg Initial BMI: 33.0 Current Weight: 79.379 kg Current BMI: 33.0 Type of Surgery: Total Volume in Band: Previous Volume: Volume Removed: Volume Added: Band Size:
== END ==
LOC: BARWHC3 08:29
PROVIDERS: ATTEND Surgery Plastic and Reconstructive Surgery
DX: E66.01 Morbid (severe) obesity due to excess calories (principal); Z68.33 Body mass index [BMI] 33.0-33.9, adult; Z79.01 Long term (current) use of anticoagulants
CPT/HCPCS: 99211

== ENCOUNTER → 2024-11-24 | Outpatient (CLI) | payer MEDICARE ==
--- NOTE | 2024-11-24 07:56 | MM ---
Reason for Exam: Screening (asymptomatic). Last mammogram was performed 1 year(s) and 1 month(s) ago. Patient History: Menarche at age 14. Patient has no children. Left ovary removed at age 44. Right ovary removed at age 44. Hysterectomy at age 44. Other cancer. Sister had breast cancer, age 47. Risk Values: Awilda 5 year model risk: 2.9%. NCI Lifetime model risk: 11.3%. Prior Study Comparison: 10/18/2021 Bilateral Screening Mammogram, [facility]. 11/17/2022 Bilateral MG 3D screening mammo w/cad, [facility]. 11/20/2023 Bilateral MG 3D screening mammo w/cad, [facility]. Tissue Density: The breasts are almost entirely fatty. Findings: Analyzed By CAD. Right breast: There is no suspicious group of microcalcifications or new suspicious mass. Benign-appearing calcifications left breast. Left breast: There is no suspicious group of microcalcifications or new suspicious mass. Overall Assessment: Benign, BI-RAD 2 Management: Screening Mammogram of both breasts in [address] [facility] will attempt to contact patient to return for supplemental views and ultrasound if indicated. Patient should continue monthly self-breast exams. A clinical breast exam by your physician is recommended on an annual basis. This exam should not preclude additional follow-up of suspicious palpable abnormalities. Note on Awilda scores and lifetime risk: 1. A Awilda score greater than 3% is considered moderate risk. If this is the case, consider specialist referral to assess eligibility for a risk reducing agent. 2. If overall lifetime risk for the development of breast cancer is 20% or higher, the patient may qualify for future screening with alternating mammogram and breast MRI. [facility], , 11/24/2024 7:52 AM. Electronically signed and approved by: Buzz Araujo DO
== END | disposition home or self-care (01) ==
LOC: RADMAMWWP 07:19
PROVIDERS: ATTEND Family Medicine
DX: Z12.31 Encounter for screening mammogram for malignant neoplasm of breast (principal); R92.313 Mammographic fatty tissue density, bilateral breasts; Z80.3 Family history of malignant neoplasm of breast
CPT/HCPCS: 77063; 77067

== ENCOUNTER → 2025-02-17 | Outpatient (CLI) | payer MEDICARE ==
[2025-02-17 10:30] LABS: Anion Gap 14.30 mmol/L (4.00-12.00); BUN/Creat Ratio 16.29 Ratio (12.00-20.00); Blood Urea Nitrogen 11.4 mg/dL (9.0-27.0); Carbon Dioxide 22.7 mmol/L (21.6-31.8); Chloride 109 mmol/L (96-109); Cholesterol 126.00 mg/dL (0.00-200.00); Glucose 199 mg/dL (70-110); HDL Cholesterol 48.30 mg/dL (40.00-60.00); LDL Cholesterol,Calculated 56.3 mg/dL (0.0-131.0); Potassium 4.1 mmol/L (3.5-5.5); Sodium 146 mmol/L (135-145); Triglycerides 107.00 mg/dL (0.00-149.00); VLDL Calculation 21.40 mg/dL (5.00-40.00)
[2025-02-17 10:31] LABS: ALT 23 U/L (8-44); AST 19 U/L (13-35); Albumin 4.4 g/dL (3.8-4.9); Albumin/Globulin Ratio 2.00 Ratio (1.60-3.17); Alkaline Phosphatase 71 U/L (41-126); Calcium 10.1 mg/dL (8.7-10.3); Globulin 2.2 g/dL (1.6-3.3); Total Protein 6.6 g/dL (6.2-8.2)
== END | disposition home or self-care (01) ==
LOC: LABWHC1 06:54
PROVIDERS: ATTEND Nurse Practitioner Adult Health
DX: I10 Essential (primary) hypertension (principal); E78.2 Mixed hyperlipidemia
CPT/HCPCS: 36415; 80053; 80061